=== PATIENT | male | born 1945 | race Caucasian/White ===

== ENCOUNTER 2019-09-13 11:48 | Observation (INO) | payer OTHER ==
[~2019-09-13] VITALS: Ht 177.8 cm; Wt 113.9 kg
[2019-09-13] MEDS ORDERED: LOPRESSOR 225 MG/TAB PO (12:11)
[2019-09-13] MEDS ORDERED: PRINIVIL10 MG PO (12:11)
[2019-09-13] MEDS ORDERED: ASPIRIN 81M81 MG/TA2 PO (12:11)
[2019-09-13 12:19] LABS: INR 1.1 (0.8-3.0); PROTHROMBIN TIME 12.1 SECONDS (9.7-12.8)
[2019-09-13 12:20] LABS: BASO # 0.1 (0.0-0.2); BASO % 0.7 % (0.0-2.0); EOS # 0.3 (0.0-0.7); EOS % 2.7 % (0-4.0); GRAN # 6.2 (1.4-6.5); GRAN % 60.7 % (42.2-75.2); HEMOGLOBIN 16.6 g/dl (13.5-18.0); LYMPH # 2.9 (1.2-3.4); MEAN CELL VOLUME 93 fl (80.0-100.0); MEAN CORPUSCULAR HEMOGLOBIN 30 pg (27.0-31.0); MEAN CORPUSCULAR HGB CONC 33 g/dl (33.0-37.0); MEAN PLATELET VOLUME 9.4 fl (7.4-10.4); MONO # 0.7 (0.1-0.6); PLATELET COUNT 262 K/mm3 (130-400); RED BLOOD COUNT 5.47 M/mm3 (4.20-5.60); REDCELL DISTRIBUTION WIDTH-CV 13.2 % (11.5-14.5)
[2019-09-13 12:24] LABS: ALANINE AMINOTRANSFERASE 22 U/L (4-49); ALBUMIN 4.4 gm/dL (3.5-5.0); ALKALINE PHOSPHATASE 85 U/L (50-136); ANION GAP 10 mmol/L (7-16); AST,SGOT 28 U/L (15-37); BILIRUBIN,TOTAL 0.8 mg/dL (0.0-1.0); BLOOD UREA NITROGEN 10 mg/dL (9-20); CALCIUM 9.5 mg/dL (8.4-10.2); CARBON DIOXIDE 25 mmol/L (22-30); CHLORIDE 104 mmol/L (98-107); CREATININE, serum 1.08 (0.66-1.25); GLUCOSE 100 mg/dL (74-106); LIPASE 138 U/L (23-300); POTASSIUM 4.3 mmol/L (3.4-5.0); SODIUM 139 mmol/L (137-145); TOTAL PROTEIN 7.8 gm/dL (6.4-8.2)
[2019-09-13 12:36] LABS: TROPONIN-I < 0.012 ng/mL (0.000-0.035)
[2019-09-13] MEDS ORDERED: LIPITOR 40MG TA40 MG PO (13:21)
[2019-09-13] MEDS ORDERED: ZESTRIL40 MG PO (13:22)
[2019-09-13] MEDS ORDERED: LOPRESSOR 550 MG/TAB PO (13:22)
[2019-09-13] MEDS ORDERED: PEPCID 20MG TAB20 MG PO (13:23)
[2019-09-13 15:21] VITALS: BP 145/87; PULSE 64; TEMP 113.9; TEMP 98
--- NOTE | 2019-09-13 15:58 | NUR ---
NIKIA received a social media strategist consult for the patient due to his needing a ride home to [place] since the patient was to be admitted. NIKIA met with the patient and he stated that his did not like driving in the town so she would need a ride. NIKIA met with the patient's . She was concerned about the detours. NIKIA provided directions to the patient and she understood them and was agreeable to driving home on her own. There were no detours on the route given. NIKIA collaborated the above information with the patient's nurse.
--- NOTE | 2019-09-13 18:01 | NUR ---
Assessment completed, alert/oriented, vital signs stable, denies any continue chest pain or discomforts, heart RRR/ SR on tele, distal pulses are palpable, lungs CTA/ no resp.difficulty noted, Cardiology consulted, plans for stress test tommorow, discussed plan of care with patient, NPO after midnight/ No caffenie staarting now
[2019-09-13 19:47] VITALS: BP 157/82; PULSE 70; TEMP 98.2
[2019-09-14] VITALS (11 sets, daily range): BP systolic 91–185; BP diastolic 56–109; PULSE 67–118; TEMP 97.6–97.8
--- NOTE | 2019-09-14 05:26 | NUR ---
NO COMPLAINTS FROM THE PATIENT THROUGH THE NIGHT. DID NOT RATE ANY PAIN FOR THIS NURSE. PATIENT HAS SLEPT THROUGH THE NIGHT WITH NO NEEDS. WILL PASS ON REPORT TO DAY SHIFT ONCE THEIR ARRIVE.
[2019-09-14 07:05] LABS: BASO % 0.5 % (0.0-2.0); EOS # 0.3 (0.0-0.7); EOS % 3.1 % (0-4.0); GRAN # 4.2 (1.4-6.5); GRAN % 52.3 % (42.2-75.2); HEMATOCRIT 48.2 % (42.0-52.0); HEMOGLOBIN 15.8 g/dl (13.5-18.0); LYMPH # 2.8 (1.2-3.4); LYMPH % 34.7 % (20.0-51.0); MEAN CELL VOLUME 93 fl (80.0-100.0); MEAN CORPUSCULAR HEMOGLOBIN 30 pg (27.0-31.0); MEAN CORPUSCULAR HGB CONC 33 g/dl (33.0-37.0); MEAN PLATELET VOLUME 9.5 fl (7.4-10.4); MONO # 0.7 (0.1-0.6); MONO % 8.5 % (1.7-9.3); PLATELET COUNT 214 K/mm3 (130-400); RED BLOOD COUNT 5.19 M/mm3 (4.20-5.60); REDCELL DISTRIBUTION WIDTH-CV 13.2 % (11.5-14.5)
[2019-09-14 07:17] LABS: CHOLESTEROL RISK RATIO 4.2; CREATININE, serum 0.97 (0.66-1.25); POTASSIUM 4.2 mmol/L (3.4-5.0)
--- NOTE | 2019-09-14 07:51 | NUR ---
Assessment completed, alert/oriented, vital signs stable, heart RRR/ SR on tele, patient denies any further chest pain or discomfort sence being admitted, serial troponin negative, no EKG changes, other labs unremarkable, patient is scheduled for Nuc. med stress test this morning, he has been NPO and denies other needs at this time
--- NOTE | 2019-09-14 09:20 | NUR ---
NIKIA met with the patient to discuss discharge plan. The patient lives in [place] with his , Janett (ph#[phone]). He reports independence with ADLs and does not have any DME. The patient's PCP is Dr. Chante Thomas at the [facility] and he [facility] his [facility] through the [facility]. He reports no difficulties obtaining his meds. The patient does not have advanced directives and he was not interested in completing them at this time. The patient plans to return home with his upon discharge. No additional needs at this time.
[2019-09-14] MEDS ORDERED: XANAX 0.5MG0.5 MG PO (10:08)
--- NOTE | 2019-09-14 12:27 | NUR ---
First visit from the route inspector. No needs right now.
--- NOTE | 2019-09-14 14:39 | NUR ---
Discharge instructions reviwed with patient, instructed to follow up with PCP and Cardiology as scheduled, IV and tele removed, leaving with , I will escort patient out of the door
== END 2019-09-14 16:25 | disposition home or self-care (01) ==
LOC: COL.ER 11:48 → MEDICAL 13:12
PROVIDERS: Emergency Medicine; Nurse Practitioner Family; ADMIT Hospitalist
DX: I25.10 Atherosclerotic heart disease of native coronary artery without angina pectoris (principal); I10 Essential (primary) hypertension; K21.9 Gastro-esophageal reflux disease without esophagitis; E78.5 Hyperlipidemia, unspecified; E66.9 Obesity, unspecified; F17.210 Nicotine dependence, cigarettes, uncomplicated; Z79.82 Long term (current) use of aspirin; Z79.899 Other long term (current) drug therapy; Z95.1 Presence of aortocoronary bypass graft
CPT/HCPCS: A9500; G0378; J1650; J2785

== ENCOUNTER 2019-09-19 11:11 | Emergency (ER) | payer OTHER ==
[~2019-09-19] VITALS: Ht 177.8 cm; Wt 114.1 kg
[~2019-09-19 11:11] MED LIST: ASPIRIN 81M81 MG/TA2 PO; LIPITOR 40MG TA40 MG PO; LOPRESSOR 225 MG/TAB PO; LOPRESSOR 550 MG/TAB PO; PEPCID 20MG TAB20 MG PO; PRINIVIL10 MG PO; XANAX 0.5MG0.5 MG PO; ZESTRIL40 MG PO
[2019-09-19 11:43] LABS: BASO # 0.1 (0.0-0.2); BASO % 0.6 % (0.0-2.0); EOS # 0.3 (0.0-0.7); EOS % 2.7 % (0-4.0); GRAN # 5.6 (1.4-6.5); GRAN % 59.8 % (42.2-75.2); HEMATOCRIT 48.3 % (42.0-52.0); LYMPH # 2.7 (1.2-3.4); MEAN CELL VOLUME 92 fl (80.0-100.0); MEAN CORPUSCULAR HEMOGLOBIN 31 pg (27.0-31.0); MEAN CORPUSCULAR HGB CONC 33 g/dl (33.0-37.0); MEAN PLATELET VOLUME 9.3 fl (7.4-10.4); MONO # 0.7 (0.1-0.6); MONO % 7.4 % (1.7-9.3); PLATELET COUNT 244 K/mm3 (130-400); RED BLOOD COUNT 5.25 M/mm3 (4.20-5.60); REDCELL DISTRIBUTION WIDTH-CV 13.1 % (11.5-14.5)
[2019-09-19 11:47] LABS: INR 1.1 (0.8-3.0); PROTHROMBIN TIME 11.8 SECONDS (9.7-12.8)
[2019-09-19 11:58] LABS: ALANINE AMINOTRANSFERASE 21 U/L (4-49); ALBUMIN 4.2 gm/dL (3.5-5.0); ALKALINE PHOSPHATASE 72 U/L (50-136); ANION GAP 8 mmol/L (7-16); AST,SGOT 27 U/L (15-37); BILIRUBIN,TOTAL 0.8 mg/dL (0.0-1.0); BLOOD UREA NITROGEN 14 mg/dL (9-20); CALCIUM 9.3 mg/dL (8.4-10.2); CARBON DIOXIDE 23 mmol/L (22-30); CHLORIDE 105 mmol/L (98-107); CREATININE, serum 0.96 (0.66-1.25); GLUCOSE 110 mg/dL (74-106); POTASSIUM 4.6 mmol/L (3.4-5.0); SODIUM 136 mmol/L (137-145); TOTAL PROTEIN 7.5 gm/dL (6.4-8.2)
[2019-09-19 12:10] LABS: TROPONIN-I < 0.012 ng/mL (0.000-0.035)
[2019-09-19] MEDS ORDERED: ZITHROMAX Z PA250 MG PO ×3 (14:22→14:28)
[2019-09-19] MEDS ORDERED: AMOXICILLIN 8751 TAB PO ×3 (14:22→14:28)
[2019-09-19 14:35] VITALS: BP 126/80; PULSE 72; TEMP 98.1
== END 2019-09-19 14:37 | disposition home or self-care (01) ==
LOC: COL.ER 11:11
PROVIDERS: Family Medicine
DX: R07.89 Other chest pain (principal); J18.9 Pneumonia, unspecified organism; I10 Essential (primary) hypertension; E78.5 Hyperlipidemia, unspecified; K21.9 Gastro-esophageal reflux disease without esophagitis; I25.10 Atherosclerotic heart disease of native coronary artery without angina pectoris; F17.210 Nicotine dependence, cigarettes, uncomplicated; Z79.82 Long term (current) use of aspirin
CPT/HCPCS: J0696